=== PATIENT | female | born 1985 | race African-American/Black ===

== ENCOUNTER 2020-03-06 10:35 | Emergency (ER) | payer OTHER ==
[~2020-03-06] VITALS: Ht 172.7 cm; Wt 75.0 kg
[2020-03-06] MEDS ORDERED: KETOROLAC 30MG/ML VIAL IM ONE (11:30)
[2020-03-06 13:15] VITALS: BP 115/70
== END 2020-03-06 13:34 | disposition home or self-care (01) ==
LOC: ER 10:35
DX: S16.1XXA Strain of muscle, fascia and tendon at neck level, initial encounter (principal); S80.02XA Contusion of left knee, initial encounter; S20.211A Contusion of right front wall of thorax, initial encounter; V49.10XA Passenger injured in collision with unspecified motor vehicles in nontraffic accident, initial encounter; Y93.89 Activity, other specified; Y92.89 Other specified places as the place of occurrence of the external cause; Y99.8 Other external cause status
CPT/HCPCS: 29505; 71101; 72040; 73562; 73590; 81025; 96372; 99284; J1885